=== PATIENT | male | born 1945 | race Caucasian/White ===

== ENCOUNTER 2019-09-29 09:16 | Emergency (ER) | payer OTHER ==
[2019-09-29] MEDS ORDERED: Ketorolac 30 MG/ML SDV IM ONE (09:47)
--- NOTE | 2019-09-29 10:17 | EDM.PDOC ---
ED HPI GENERAL MEDICAL PROBLEM - General Chief Complaint: Lower Extremity Injury/Pain Stated Complaint: SWOLLEN RIGHT KNEE Time Seen by Provider: 09/29/19 09:39 Source of Information: Reports: Patient, RN Notes Reviewed - History of Present Illness INITIAL COMMENTS - FREE TEXT/NARRATIVE: 74 yr old male comes in with R knee pain. This started 4 days ago. The pain is worse with motion of the knee, positional. If he holds his knee and leg in a neutral position no pain. No hx of recent injury or knee problems. He has been gardening this past week so on his knees a lot more than usual with that activity. No fever or chills. No other recent joint problems. Hx of gout many yrs ago. Right Knee Pain Score (Numeric/FACES): 10 - Related Data Allergies Allergy/AdvReac Type Severity Reaction Status Date / Time No Known Allergies Allergy Verified 09/29/19 09:33 Home Meds: Home Meds Acetaminophen/HYDROcodone [Inwood 325-5 MG] 1 tab PO Q6H PRN #14 tablet 09/29/19 [Rx] Acetaminophen/HYDROcodone [Inwood 325-5 MG] 1 tab PO Q6H PRN #14 tablet 09/29/19 [Rx] Naproxen [Naprosyn] 500 mg PO Q12HR #14 tab 09/29/19 [Rx] Past Medical History HEENT History: Reports: Cataract Cardiovascular History: Reports: Hypertension Other Genitourinary History: urinary dribbling - Past Surgical History HEENT Surgical History: Reports: Cataract Surgery, Other (See Below) Other HEENT Surgeries/Procedures: eye implants GI Surgical History: Reports: Hernia, Inguinal Social & Family History - Tobacco Use Smoking Status *Q: Former Smoker Used Tobacco, but Quit: Yes Month/Year Tobacco Last Used: smoked for 20 years - Caffeine Use Caffeine Use: Reports: None - Recreational Drug Use Recreational Drug Use: No Review of Systems - Review of Systems Review Of Systems: See Below Constitutional: Denies: Chills, Fever Mouth/Throat: Reports: No Symptoms Respiratory: Denies: Shortness of Breath Cardiovascular: Denies: Chest Pain GI/Abdominal: Denies: Abdominal Pain, Nausea, Vomiting Musculoskeletal: Reports: Joint Pain Skin: Reports: No Symptoms Neurological: Reports: No Symptoms ED EXAM, GENERAL - Physical Exam Exam: See Below General Appearance: Alert, No Apparent Distress (at rest) Eye Exam: Bilateral Eye: PERRL Head: Atraumatic Neck: Supple Respiratory/Chest: No Respiratory Distress, Lungs Clear, Normal Breath Sounds Cardiovascular: Regular Rate, Rhythm Extremities: Other (There is tenderness of the knee laterally with very mild swelling ant. lat. knee. No joint effusion. joint is stable. He does have pain with flexion and extension. Distal leg nontender, no leg warmth, erythema or swelling. ) Neurological: Alert, Oriented, No Motor/Sensory Deficits Skin Exam: Warm, Dry, Normal Color Course - Vital Signs Last Recorded V/S: Last Vital Signs Temp 98.0 F 09/29/19 09:30 Pulse 91 09/29/19 09:30 Resp 18 09/29/19 09:30 BP 148/71 H 09/29/19 09:30 Pulse Ox 98 09/29/19 09:30 - Orders/Labs/Meds Meds: Medications Discontinued Medications Generic Name Dose Route Start Last Admin Trade Name Freq PRN Reason Stop Dose Admin Ketorolac Tromethamine 30 mg 09/29/19 09:47 09/29/19 10:05 Toradol IM 09/29/19 09:48 30 mg ONETIME ONE Administration - Re-Assessments/Exams Free Text/Narrative Re-Assessment/Exam: 09/29/19 13:09 X rays of knee do not show any acute findings. He does not have an effusion. I suspect the gardening on his knees has triggered an inflamatory response. Discharge instr. as documented. Departure - Departure Time of Disposition: 10:36 Disposition: Home, Self-Care 01 Condition: Fair Clinical Impression: Right knee pain Qualifiers: Chronicity: acute Qualified Code(s): M25.561 - Pain in right knee - Discharge Information Prescriptions: Naproxen [Naprosyn] 500 mg PO Q12HR #14 tab Acetaminophen/HYDROcodone [Inwood 325-5 MG] 1 tab PO Q6H PRN #14 tablet PRN Reason: Pain Acetaminophen/HYDROcodone [Inwood 325-5 MG] 1 tab PO Q6H PRN #14 tablet PRN Reason: Pain Instructions: Acute Knee Pain, Adult Referrals: Kyrie Fleming MD [Primary Care Provider] - Forms: ED Department Discharge Additional Instructions: Rest leg and knee until pain resolving. Naprosyn 500 mg twice daily for 1 week which will help the pain and reduce the inflamation. Prescription has been sent electronic to [facility]. Take that with food so as not to upset your stomach. You can take tylenol up to 3 times daily in addition for extra pain relief or hydrocodone if needed for severe pain. Do not drive when taking hydrocodone. Do not take tylenol and hydrocodone at the same time. Follow up at the [facility] in 2 to 3 days for recheck or at our [facility], [phone] for appointment. Return to ED as needed if symptoms worsening in any way. Sepsis Event Note - Evaluation Sepsis Screening Result: No Definite Risk - Focused Exam Vital Signs: Vital Signs Temp Pulse Resp BP Pulse Ox 09/29/19 09:30 98.0 F 91 18 148/71 H 98 Date Exam was Performed: 09/29/19 Time Exam was Performed: 13:03
--- NOTE | 2019-09-29 10:26 | CR ---
Right knee: 4 views of the right knee were obtained. Comparison: No prior knee exam. Medial and lateral joint spaces are maintained in height. No joint effusion is seen. No fracture or other bony abnormality is appreciated. Mild vascular calcification is seen. Impression: 1. Mild vascular calcification. 2. No acute bony abnormality is appreciated on right knee exam. Diagnostic code #2 This report was dictated in MDT
== END 2019-09-29 10:59 | disposition home or self-care (01) ==
LOC: JD.ED 09:16
DX: M25.561 Pain in right knee (principal); I10 Essential (primary) hypertension; Z87.891 Personal history of nicotine dependence; Z79.899 Other long term (current) drug therapy
CPT/HCPCS: 73564; 96372; 99283; J1885

== ENCOUNTER 2020-06-17 08:17 | Emergency (ER) | payer OTHER ==
[2020-06-17] MEDS ORDERED: Sodium Chloride 0.9% 10 ML Syringe FLUSH PRN (08:42)
[2020-06-17] MEDS ORDERED: HYDROmorphone 1 MG/ML Syringe IVPUSH ONE (08:43)
[2020-06-17] MEDS ORDERED: carBAMazepine 200 MG Tab PO ONE (08:43)
[2020-06-17] MEDS ORDERED: Metoclopramide 10 MG/2 ML SDV IVPUSH ONE (08:43)
[2020-06-17] MEDS ORDERED: methylPREDNISolone Sodium Succinate 125 MG/2 ML SDV IVPUSH ONE (08:47)
--- NOTE | 2020-06-17 08:47 | EDM.PDOC ---
ED HPI GENERAL MEDICAL PROBLEM - General Chief Complaint: Headache Stated Complaint: HEAD [facility]IN [facility] Time Seen by Provider: 06/17/20 08:23 Source of Information: Reports: Patient History Limitations: Reports: No Limitations - History of Present Illness INITIAL COMMENTS - FREE TEXT/NARRATIVE: 75-year-old male presents to the ED with fairly sudden onset of severe cervical neck pain which is sharp lancinating and shooting up the back of his head on the right side. Patient states it started on Saturday, June 15 in the p.m. It is gradually intensified and is becoming much more frequent almost every 15 seconds he gets sharp lancinating pain that is almost paralytic. No associated nausea vomiting or headache. Does he do matter what position he is in. Patient hardly got any sleep last note due to the severity of the pain. No known injuries to the head or neck. No recent falls or injuries. No previous similar problems. Only new medication is Cymbalta 60mg daily started 2 weeks ago. This was for fibromyalgia. He has not noticed any rash in the back of his head neck or shoulder. Patient had several of these attacks of sharp shooting lancinating pain while I was in the examination room. Onset: Sudden Onset Date: 06/15/20 Onset Time: 14:00 Duration: Hour(s):, Getting Worse, Intermittent Location: Reports: Head (Right occipital scalp with no radiation into the parietal or frontal temporal scalp.) Quality: Reports: Other (And is sharp stabbing and lancinating like an electric shock.) Severity: Severe Improves with: Reports: None Worsens with: Reports: None Context: Reports: Other (Spontaneous occurrence). Denies: Activity, Exercise, Lifting, Sick Contact, Trauma Associated Symptoms: Reports: No Other Symptoms. 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 Naproxen as well.) Head Pain Score (Numeric/FACES): 10 - Related Data Allergies Allergy/AdvReac Type Severity Reaction Status Date / Time No Known Allergies Allergy Verified 06/17/20 08:23 Home Meds: Home Meds Cholecalciferol (Vitamin D3) [Vitamin D3] 50 mcg PO DAILY 06/17/20 [History] DULoxetine HCl [Cymbalta] 60 mg PO DAILY 06/17/20 [History] Famotidine 20 mg PO BEDTIME 06/17/20 [History] Losartan [Cozaar] 100 mg PO DAILY 06/17/20 [History] Multivitamin PO DAILY 06/17/20 [History] Potassium Chloride 40 meq PO DAILY 06/17/20 [History] Tamsulosin HCl 0.8 mg PO BEDTIME 06/17/20 [History] carBAMazepine [Tegretol] 200 mg PO BID #20 tablet 06/17/20 [Rx] oxyCODONE HCl/Acetaminophen [Percocet 5-325 mg Tablet] 1 - 2 each PO Q4H PRN #20 tablet 06/17/20 [Rx] predniSONE [Prednisone] 20 mg PO BID #14 tablet 06/17/20 [Rx] Past Medical History HEENT History: Reports: Cataract Cardiovascular History: Reports: Hypertension Other Genitourinary History: urinary dribbling Musculoskeletal History: Reports: Fibromyalgia, Osteoarthritis - Past Surgical History HEENT Surgical History: Reports: Cataract Surgery, Other (See Below) Other HEENT Surgeries/Procedures: eye implants GI Surgical History: Reports: Hernia, Inguinal Social & Family History - Family History Family Medical History: No Pertinent Family History - Tobacco Use Tobacco Use Status *Q: Never Tobacco User - Caffeine Use Caffeine Use: Reports: None - Recreational Drug Use Recreational Drug Use: No - Living Situation & Occupation Occupation: Retired ED ROS GENERAL - Review of Systems Review Of Systems: See Below Constitutional: Reports: Malaise (Due to not being able to sleep.). Denies: Fever, Chills HEENT: Reports: Glasses Respiratory: Reports: No Symptoms Cardiovascular: Reports: Blood Pressure Problem Endocrine: Reports: No Symptoms GI/Abdominal: Reports: No Symptoms : Reports: Frequency, Other (nocturia x1-2 ) Musculoskeletal: Reports: Other (Reportedly secondary to fibromyalgia syndrome.) Skin: Reports: No Symptoms Neurological: Reports: Other (See history of present illness. Presents with sharp stabbing lancinating neurogenic pain right occipital skull.) Psychiatric: Reports: No Symptoms Hematologic/Lymphatic: Reports: No Symptoms Immunologic: Reports: No Symptoms ED EXAM, NEURO - Physical Exam Exam: See Below Exam Limited By: No Limitations General Appearance: Alert, WD/WN, Moderate Distress, Other (Patient is experiencing the sudden onset of sharp stabbing lancinating pain about once every 15 seconds during our interview and examination.) Eye Exam: Bilateral Eye: Normal Inspection, PERRL Throat/Mouth: Normal Inspection, Normal Lips, Normal Oropharynx Head Exam: Atraumatic, Normocephalic, Other Neck: Normal Inspection, Supple, Non-Tender, Full Range of Motion, Other (Rashes were appreciated on the occipital aspect of the scalp or in the cervical neck to suggest shingles.). No: Lymphadenopathy (L), Lymphadenopathy (R) Respiratory/Chest: No Respiratory Distress, Lungs Clear, Normal Breath Sounds, No Accessory Muscle Use Cardiovascular: Normal Peripheral Pulses, Regular Rate, Rhythm, No Edema, No Gallop, No Murmur, No Rub GI/Abdominal: Normal Bowel Sounds, Soft, Non-Tender, No Organomegaly, No Mass, Pelvis Stable Neurological: Alert, Normal Dorsiflexion, CN II-XII Intact, Normal Gait, No Motor/Sensory Deficits, Oriented x 3. No: Abnormal Gait Extremities: Normal Inspection, Normal Range of Motion, Non-Tender, No Pedal Edema Psychiatric: Normal Affect, Normal Mood Skin Exam: Warm, Dry, Intact, Normal Color, No Rash Course - Vital Signs Last Recorded V/S: Last Vital Signs Temp 36.8 C 06/17/20 08:25 Pulse 100 06/17/20 08:25 Resp 18 06/17/20 08:25 BP 156/108 H 06/17/20 08:25 Pulse Ox 100 06/17/20 08:25 - Orders/Labs/Meds Orders: Active Orders 24 hr Category Date Time Status Peripheral IV Insertion Adult [OM.PC] Stat Oth 06/17/20 08:42 Ordered Labs: Laboratory Tests 06/17/20 06/17/20 Range/Units 08:26 08:26 WBC 10.49 H (4.23-9.07) K/mm3 RBC 5.16 (4.63-6.08) M/mm3 Hgb 15.7 (13.7-17.5) gm/dl Hct 44.7 (40.1-51.0) % MCV 86.6 (79.0-92.2) fl MCH 30.4 (25.7-32.2) pg MCHC 35.1 (32.2-35.5) g/dl RDW Std Deviation 44.1 H (35.1-43.9) fL Plt Count 348 H (163-337) K/mm3 MPV 8.7 L (9.4-12.3) fl Neut % (Auto) 67.0 (34.0-67.9) % Lymph % (Auto) 25.4 (21.8-53.1) % [place] % (Auto) 6.3 (5.3-12.2) % Eos % (Auto) 0.9 (0.8-7.0) Baso % (Auto) 0.4 (0.1-1.2) % Neut # (Auto) 7.04 H (1.78-5.38) K/mm3 Lymph # (Auto) 2.66 (1.32-3.57) K/mm3 [place] # (Auto) 0.66 (0.30-0.82) K/mm3 Eos # (Auto) 0.09 (0.04-0.54) K/mm3 Baso # (Auto) 0.04 (0.01-0.08) K/mm3 Sodium 140 (136-145) mEq/L Potassium 3.6 (3.5-5.1) mEq/L Chloride 103 (98-107) mEq/L Carbon Dioxide 23 (21-32) mEq/L Anion Gap 17.6 H (5-15) BUN 10 (7-18) mg/dL Creatinine 0.9 (0.7-1.3) mg/dL Est Cr Clr Drug Dosing 69.67 mL/min Estimated GFR (MDRD) > 60 (>60) mL/min BUN/Creatinine Ratio 11.1 L (14-18) Glucose 132 H (83-115) mg/dL Calcium 9.1 (8.5-10.1) mg/dL Total Bilirubin 0.5 (0.2-1.0) mg/dL AST 15 (15-37) U/L ALT 24 (16-63) U/L Alkaline Phosphatase 103 (46-116) U/L C-Reactive Protein <0.2 (<1.0) mg/dL Total Protein 8.0 (6.4-8.2) g/dl Albumin 4.1 (3.4-5.0) g/dl Globulin 3.9 gm/dL Albumin/Globulin Ratio 1.1 (1-2) Meds: Medications Discontinued Medications Generic Name Dose Route Start Last Admin Trade Name Andersonq PRN Reason Stop Dose Admin Carbamazepine 200 mg 06/17/20 08:43 06/17/20 09:05 Tegretol Tab PO 06/17/20 08:44 200 mg ONETIME ONE Administration Hydromorphone HCl 1 mg 06/17/20 08:43 06/17/20 08:52 Dilaudid IVPUSH 06/17/20 08:44 1 mg ONETIME ONE Administration Methylprednisolone Sodium Succinate 125 mg 06/17/20 08:47 06/17/20 08:54 Solu-Medrol IVPUSH 06/17/20 08:48 125 mg ONETIME ONE Administration Metoclopramide HCl 10 mg 06/17/20 08:43 06/17/20 08:53 Reglan IVPUSH 06/17/20 08:44 10 mg ONETIME ONE Administration Sodium Chloride 10 ml 06/17/20 08:42 06/17/20 08:58 Saline Flush FLUSH 10 ml ASDIRECTED PRN Administration Keep Vein Open - Radiology Interpretation Free Text/Narrative:: 75-year-old male presents to the ED for evaluation of severe right occipital pain that started on the p.m. of May 15. Therefore it started almost 48 hours ago. Patient is experiencing sharp ,stabbing intermittent lancinating pain which is severe almost paralytic when it occurs. Over the last 48 hours it has become more intense and more frequent coming almost every 15 seconds this morning. Between attacks of sharp lancinating pain he is pain-free. Pain is severe rated as 10 out of 10. No associated headache, no nausea vomiting. No blurred vision. Normal gait. Full range of motion of cervical spine and no associated recent falls or injuries. On exam no rashes identified in the occipital scalp to suggest developing herpes zoster. Clinically the pain is that of neurogenic pain in the C2 nerve root distribution. Causes usually due to her underlying herpes virus such as herpes 6 or 9 and still possibility of herpes zoster developing over the next 3 days. Plan saline lock. Routine labs to be performed including a CRP. Patient will be given Dilaudid 1 mg IV with Reglan 10 mg IV and Solu-Medrol 125 mg IV and Tegretol 200 mg p.o. - Re-Assessments/Exams Free Text/Narrative Re-Assessment/Exam: 06/17/20 09:44 On review the patient is doing better. He still having the sharp lancinating pain every 15 seconds but not as severe after narcotic IV. He is alert oriented. He will therefore be discharged to home in the care of his sister doing the driving. He is for follow-up in 7 days time sooner if he develops any rash in this area which would suggest herpes zoster infection. Departure - Departure Time of Disposition: 09:45 Disposition: Home, Self-Care 01 Condition: Fair Clinical Impression: Neuralgia and neuritis, unspecified - Discharge Information *PRESCRIPTION DRUG MONITORING PROGRAM REVIEWED*: Not Applicable *COPY OF PRESCRIPTION DRUG MONITORING REPORT IN PATIENT AAYUSH: Not Applicable Prescriptions: oxyCODONE HCl/Acetaminophen [Percocet 5-325 mg Tablet] 1 - 2 each PO Q4H PRN #20 tablet PRN Reason: pain relief. predniSONE [Prednisone] 20 mg PO BID #14 tablet carBAMazepine [Tegretol] 200 mg PO BID #20 tablet Instructions: Neuropathic Pain Referrals: PCP,Not In Area [Primary Care Provider] - Forms: ED Department Discharge Additional Instructions: Evaluation in the emergency room today in regards to recurrent severe sharp lancinating shooting pain in the occipital aspect of your right scalp starting 36 to 40 hours ago. Pain has persisted and has become more intense and more frequent coming almost every 15 seconds during her interview in the emergency room. No known injuries to the neck or head. In between attacks of sharp lancinating pain pain goes away. Secondary to inflammation of a cranial nerve in the C2 nerve root distribution. The cause of this remains unclear. We believe that is due to herpes virus infection of the nerve. This can be herpes zoster which is shingles. This is unlikely to occur in you if you have never had chickenpox documented. Herpes 6 virus and herpes 9 virus can also cause inflammation of nerves in her head and neck. Treatment in the ED was intravenous pain medicine Dilaudid 1 mg IV which will reduce the severity of the pain but will not reduce the frequency of the pain. He was started on Tegretol 200 mg tablet by mouth which will take 2 or 3 days to become totally effective. This drug will have to be taken twice daily for the next 10 days and if pain has not gone away we will increase the dosage. You are to use steroid prednisone 20 mg twice daily for the next 7 days with the first tablet to be taken tonight before bed. Initial dose was provided intravenously in the emergency room. Expect an improvement in pain and frequency of the pain over the next 48 hours. It is unpredictable as to how long you may be plagued with this painful syndrome but typically it is markedly improved in 10 to 12 days time. Suggest follow-up with primary care provider in 7 days time to readjust Tegretol if needed. Sepsis Event Note (ED) - Evaluation Sepsis Screening Result: No Definite Risk - My Orders Last 24 Hours: My Active Orders 06/17/20 08:42 Peripheral IV Insertion Adult [OM.PC] Stat - Assessment/Plan Last 24 Hours: My Active Orders 06/17/20 08:42 Peripheral IV Insertion Adult [OM.PC] Stat
== END 2020-06-17 10:07 | disposition home or self-care (01) ==
LOC: JD.ED 08:17
DX: M79.2 Neuralgia and neuritis, unspecified (principal); R21 Rash and other nonspecific skin eruption; I10 Essential (primary) hypertension; Z79.899 Other long term (current) drug therapy
CPT/HCPCS: 36415; 80053; 85025; 86140; 96374; 96375; 99284; A9270; J1170; J2765; J2930

== ENCOUNTER 2025-01-19 11:49 | Emergency (ER) | payer OTHER | END 2025-01-19 14:03 | disposition home or self-care (01) | LOC: JD.ED 11:49 | DX: M25.511 Pain in right shoulder (principal); I10 Essential (primary) hypertension; Z79.899 Other long term (current) drug therapy | CPT/HCPCS: 73030; 99283; A9270 ==

== ENCOUNTER 2025-02-22 06:00 | Day surgery (SDC) | payer OTHER ==
[2025-02-22] MEDS: Lactated Ringers 1,000 ML IV SCH (05:57)
[~2025-02-22 06:00] MED LIST: Sodium Chloride 0.9% 10 ML Syringe FLUSH PRN; Sodium Chloride 0.9% 10 ML Syringe FLUSH SCH
[2025-02-22] MEDS ORDERED: Ropivacaine 0.5% 5 MG/ML 30 ML SDV ONE (06:49)
[2025-02-22] MEDS ORDERED: fentaNYL 100 MCG/2 ML SDV ONE ×2 (06:50→08:12)
[2025-02-22 06:53] LABS: INR 1.08
[2025-02-22 06:55] LABS: PTT,PARTIAL THROMBOPLSTIN TIME 26.1 SECONDS (21.7-31.4)
[2025-02-22] MEDS ORDERED: Propofol 200 MG/20 ML SDV ONE (07:01)
[2025-02-22] MEDS ORDERED: Dexamethasone 4 MG/ML 5 ML MDV ONE (07:01)
[2025-02-22] MEDS ORDERED: Ondansetron 4 MG/2 ML SDV ONE (07:01)
[2025-02-22] MEDS: oxyCODONE ER 10 MG TAB.ER PO SCH (07:02)
[2025-02-22] MEDS ORDERED: Phenylephrine 1% 10 MG/ML SDV ONE (07:28)
[2025-02-22] MEDS: fentaNYL 100 MCG/2 ML SDV IVPUSH PRN (09:00)
[2025-02-22] MEDS: Ondansetron 4 MG/2 ML SDV IVPUSH ONE (09:30)
[2025-02-22] MEDS: Acetaminophen/HYDROcodone 325-5 MG Tab PO ONE (10:18)
== END 2025-02-22 13:20 | disposition home or self-care (01) ==
LOC: JD.SDS 06:00
PROVIDERS: ATTEND Orthopaedic Surgery
DX: M75.101 Unspecified rotator cuff tear or rupture of right shoulder, not specified as traumatic (principal); M12.811 Other specific arthropathies, not elsewhere classified, right shoulder; R73.03 Prediabetes; I10 Essential (primary) hypertension; Z79.82 Long term (current) use of aspirin; Z79.899 Other long term (current) drug therapy; Z87.891 Personal history of nicotine dependence
CPT/HCPCS: 23472; 36415; 76000; 85610; 85730; 97116; 97161; 97530; A9270; C1713; C1769; C1776; J0690; J1100; J2003; J2371; J2405; J2704; J2795; J3010; J3373; J7120; J7620; 01638; 64415; 99100; J3490

== ENCOUNTER 2025-03-30 13:20 | Emergency (ER) | payer OTHER ==
[2025-03-30] MEDS: Furosemide 40 MG/4 ML VIAL IVPUSH ONE (16:00)
[2025-03-30 16:06] LABS: BASOPHILS ABSOLUTE AUTO 0.0 K/mm3 (0.0-0.2); BASOPHILS PERCENT AUTO 0.4 % (0.0-1.0); EOSINOPHILS ABSOLUTE AUTO 0.3 K/mm3 (0.0-0.4); EOSINOPHILS PERCENT AUTO 3.7 % (0.0-6.0); IMMATURE GRAN ABSOLUTE AUTO 0.03 K/mm3 (0.00-0.05); IMMATURE GRAN PERCENT AUTO 0.4 % (0.0-0.4); LYMPHOCYTES ABSOLUTE AUTO 2.2 K/mm3 (1.0-4.8); LYMPHOCYTES PERCENT AUTO 26.6 % (24.0-44.0); MEAN PLATELET VOLUME 8.8 fl (9.4-12.4); MONOCYTES ABSOLUTE AUTO 1.0 K/mm3 (0.0-0.8); MONOCYTES PERCENT AUTO 11.5 % (0.0-8.0); NEUTROPHILS ABSOLUTE AUTO 4.8 K/mm3 (1.8-7.7); NEUTROPHILS PERCENT AUTO 57.4 % (41.0-71.0); NRBC ABSOLUTE 0.00 (0.00-0.02); NRBC PERCENT 0.0 % (0.0-0.2); PLATELET COUNT,PLT 230 K/mm3 (150-400); RED BLOOD CELL COUNT 4.73 M/mm3 (4.52-5.90); WHITE BLOOD CELL COUNT,WBC 8.27 K/mm3 (3.9-11.3)
[2025-03-30 16:37] LABS: A/G RATIO 1.0 (1-2); ALANINE AMINOTRANSFERASE,ALT 15.0 U/L (16-63); ASPARTATE AMNIOTRANSFERASE,AST 17.0 U/L (15-37); BILIRUBIN TOTAL 0.4 mg/dL (0.2-1.0); BLOOD UREA NITROGEN,BUN 17.0 mg/dL (7-18); CARBON DIOXIDE,CO2 28.0 mEq/L (21-32); CHLORIDE,CL 107.0 mEq/L (98-107); CREATININE 1.0 mg/dL (0.7-1.3); EST CRCL DRUG DOSING (CG) 57.95 mL/min; ESTIMATED GFR 77.0 mL/min (>60); GLUCOSE RANDOM 100.0 mg/dL (70-99); POTASSIUM,K 4.2 mEq/L (3.5-5.1); PROTEIN TOTAL,TP 7.2 g/dl (6.4-8.2); SODIUM,NA 143.0 mEq/L (136-145); TROPONIN I HIGH SENSITIVITY 11.0 pg/mL (<=76)
[2025-03-30] MEDS ORDERED: Sodium Chloride 0.9% 10 ML Syringe FLUSH ONE (17:30)
[2025-03-30] MEDS: Sodium Chloride 0.9% 10 ML Syringe FLUSH PRN (17:31)
[2025-03-30] MEDS: Iopamidol 755 Mg/ML 100 ML Bottle IVPUSH ONE (17:31)
== END 2025-03-30 19:02 | disposition home or self-care (01) ==
LOC: JD.ED 13:20
DX: R07.89 Other chest pain (principal); I73.9 Peripheral vascular disease, unspecified; I87.2 Venous insufficiency (chronic) (peripheral); I10 Essential (primary) hypertension; Z79.899 Other long term (current) drug therapy; Z87.891 Personal history of nicotine dependence
CPT/HCPCS: 36415; 71045; 71275; 80053; 83735; 83880; 84484; 85025; 85379; 86140; 93005; 96374; 99285; J1938; Q9967; 93010; 99283

== ENCOUNTER 2025-04-14 17:51 | Emergency (ER) | payer OTHER ==
[2025-04-14 19:02] LABS: BASOPHILS ABSOLUTE AUTO 0.0 K/mm3 (0.0-0.2); BASOPHILS PERCENT AUTO 0.6 % (0.0-1.0); EOSINOPHILS ABSOLUTE AUTO 0.3 K/mm3 (0.0-0.4); EOSINOPHILS PERCENT AUTO 4.3 % (0.0-6.0); IMMATURE GRAN ABSOLUTE AUTO 0.01 K/mm3 (0.00-0.05); IMMATURE GRAN PERCENT AUTO 0.2 % (0.0-0.4); LYMPHOCYTES ABSOLUTE AUTO 2.7 K/mm3 (1.0-4.8); LYMPHOCYTES PERCENT AUTO 41.1 % (24.0-44.0); MEAN PLATELET VOLUME 9.3 fl (9.4-12.4); MONOCYTES ABSOLUTE AUTO 0.7 K/mm3 (0.0-0.8); MONOCYTES PERCENT AUTO 11.2 % (0.0-8.0); NEUTROPHILS ABSOLUTE AUTO 2.8 K/mm3 (1.8-7.7); NEUTROPHILS PERCENT AUTO 42.6 % (41.0-71.0); NRBC ABSOLUTE 0.00 (0.00-0.02); NRBC PERCENT 0.0 % (0.0-0.2); PLATELET COUNT,PLT 270 K/mm3 (150-400); RED BLOOD CELL COUNT 4.48 M/mm3 (4.52-5.90); WHITE BLOOD CELL COUNT,WBC 6.54 K/mm3 (3.9-11.3)
[2025-04-14 19:17] LABS: A/G RATIO 0.9 (1-2); ALANINE AMINOTRANSFERASE,ALT 20.0 U/L (16-63); ASPARTATE AMNIOTRANSFERASE,AST 13.0 U/L (15-37); BILIRUBIN TOTAL 0.3 mg/dL (0.2-1.0); BLOOD UREA NITROGEN,BUN 24.0 mg/dL (7-18); CARBON DIOXIDE,CO2 29.0 mEq/L (21-32); CHLORIDE,CL 104.0 mEq/L (98-107); CREATININE 1.2 mg/dL (0.7-1.3); EST CRCL DRUG DOSING (CG) 48.29 mL/min; ESTIMATED GFR 62.0 mL/min (>60); GLUCOSE RANDOM 154.0 mg/dL (70-99); POTASSIUM,K 3.6 mEq/L (3.5-5.1); PROTEIN TOTAL,TP 6.9 g/dl (6.4-8.2); SODIUM,NA 143.0 mEq/L (136-145); TROPONIN I HIGH SENSITIVITY 6.0 pg/mL (<=76)
== END 2025-04-14 20:48 | disposition home or self-care (01) ==
LOC: JD.ED 17:51
DX: I73.9 Peripheral vascular disease, unspecified (principal); I87.2 Venous insufficiency (chronic) (peripheral); I10 Essential (primary) hypertension; Z79.899 Other long term (current) drug therapy
CPT/HCPCS: 36415; 71046; 71046-26; 80053; 83880; 84484; 85025; 93005; 93010; 99283; 99285

== ENCOUNTER 2025-04-19 07:07 | Emergency (ER) | payer OTHER ==
[2025-04-19 08:14] LABS: BASOPHILS ABSOLUTE AUTO 0.0 K/mm3 (0.0-0.2); BASOPHILS PERCENT AUTO 0.5 % (0.0-1.0); EOSINOPHILS ABSOLUTE AUTO 0.3 K/mm3 (0.0-0.4); EOSINOPHILS PERCENT AUTO 4.2 % (0.0-6.0); IMMATURE GRAN ABSOLUTE AUTO 0.01 K/mm3 (0.00-0.05); IMMATURE GRAN PERCENT AUTO 0.2 % (0.0-0.4); LYMPHOCYTES ABSOLUTE AUTO 1.6 K/mm3 (1.0-4.8); LYMPHOCYTES PERCENT AUTO 25.9 % (24.0-44.0); MEAN PLATELET VOLUME 8.9 fl (9.4-12.4); MONOCYTES ABSOLUTE AUTO 0.7 K/mm3 (0.0-0.8); MONOCYTES PERCENT AUTO 11.7 % (0.0-8.0); NEUTROPHILS ABSOLUTE AUTO 3.4 K/mm3 (1.8-7.7); NEUTROPHILS PERCENT AUTO 57.5 % (41.0-71.0); NRBC ABSOLUTE 0.00 (0.00-0.02); NRBC PERCENT 0.0 % (0.0-0.2); PLATELET COUNT,PLT 211 K/mm3 (150-400); RED BLOOD CELL COUNT 4.54 M/mm3 (4.52-5.90); WHITE BLOOD CELL COUNT,WBC 5.98 K/mm3 (3.9-11.3)
[2025-04-19 08:47] LABS: A/G RATIO 0.9 (1-2); ALANINE AMINOTRANSFERASE,ALT 20.0 U/L (16-63); ASPARTATE AMNIOTRANSFERASE,AST 17.0 U/L (15-37); BILIRUBIN TOTAL 0.4 mg/dL (0.2-1.0); BLOOD UREA NITROGEN,BUN 18.0 mg/dL (7-18); CARBON DIOXIDE,CO2 25.0 mEq/L (21-32); CHLORIDE,CL 109.0 mEq/L (98-107); CREATININE 1.1 mg/dL (0.7-1.3); EST CRCL DRUG DOSING (CG) 52.68 mL/min; ESTIMATED GFR 68.0 mL/min (>60); GLUCOSE RANDOM 131.0 mg/dL (70-99); POTASSIUM,K 3.5 mEq/L (3.5-5.1); PROTEIN TOTAL,TP 6.6 g/dl (6.4-8.2); SODIUM,NA 144.0 mEq/L (136-145); TROPONIN I HIGH SENSITIVITY 8.0 pg/mL (<=76)
== END 2025-04-19 14:10 | disposition home or self-care (01) ==
LOC: JD.ED 07:07
DX: R00.1 Bradycardia, unspecified (principal); T50.995A Adverse effect of other drugs, medicaments and biological substances, initial encounter; I10 Essential (primary) hypertension; Z79.899 Other long term (current) drug therapy
CPT/HCPCS: 36415; 71045; 71045-26; 80053; 83880; 84484; 85025; 93005; 99285